=== PATIENT | female | born 1945 | race Caucasian/White ===

== ENCOUNTER 2021-08-26 11:56 | Inpatient (IN) | payer OTHER, MEDICAID, SELFPAY ==
[~2021-08-26] VITALS: Ht 165.1 cm; Wt 100.7 kg
[2021-08-26 12:00] VITALS: BP_SYST 136
--- NOTE | 2021-08-26 12:00 | NUR ---
BROUGHT IN BY ME[employer] FIRE AND PLACED IN BED #1 AND TRIAGED. REPORT GIVEN TO BRODIE
--- NOTE | 2021-08-26 12:25 | NUR ---
MD RUSSO AT BEDSIDE ASSESSING PT.
[2021-08-26 13:06] LABS: ANION GAP 10 (5-15); CALCIUM 8.5 mg/dL (8.4-11.0); CHLORIDE 101 mmol/L (98-107); CREATININE 0.98 mg/dL (0.55-1.30); GLUCOSE 115 mg/dL (70-99); POTASSIUM 3.5 mmol/L (3.5-5.1); SODIUM SERUM 139 mmol/L (136-145); UREA NITROGEN, BLOOD 20 mg/dL (8-21)
[2021-08-26 13:14] LABS: INR 1.1 (0.8-1.2)
[2021-08-26 13:16] LABS: ALANINE AMINOTRANSFERASE 261 U/L (12-78); ALBUMIN 3.3 g/dL (3.4-4.8); ASPARTATE AMINOTRANSFERASE 64 U/L (10-37); TOTAL BILIRUBIN 1.2 mg/dL (0.0-1.0)
[2021-08-26 13:27] LABS: EOSINOPHILS % (AUTO) 0.9 % (0.0-4.0); HEMATOCRIT 37.4 % (36-48); HEMOGLOBIN 12.3 g/dL (12.0-16.0); LYMPHOCYTES # (AUTO) 1.1 K/uL (1.0-5.5); LYMPHOCYTES % (AUTO) 20.5 % (20.5-51.5); MEAN CORPUSCULAR HEMOGLOBIN 28 pg (27-31); MEAN CORPUSCULAR HGB CONC 33 % (32-36); MEAN CORPUSCULAR VOLUME 86 fL (79.0-98.0); MONOCYTES # (AUTO) 0.3 K/uL (0.0-1.0); MONOCYTES % (AUTO) 6.4 % (1.7-9.3); PLATELET COUNT (AUTO) 153 K/uL (130-430); RED BLOOD CELL COUNT(AUTO) 4.34 MIL/uL (4.2-6.2); RED CELL DISTRIBUTION WIDTH 15.8 % (9.0-15.0); WHITE BLOOD COUNT (AUTO) 5.2 K/uL (4.8-10.8)
[2021-08-26 13:30] LABS: BASOPHILS % (AUTO) 0.2 % (0.0-2.0); NEUTROPHILS # (AUTO) 3.8 K/uL (1.8-7.7)
--- NOTE | 2021-08-26 13:35 | NUR ---
PT IS STABLE, NO S/S OF DISCOMFORT. TOP AND SEAT COVER FITTER NOTING STABLE WTIH TACHYCARDIA.
[2021-08-26] MEDS ORDERED: dilTIAZem HCL IVP 5 MG/ML VIAL IVP ONE (14:00)
[2021-08-26] MEDS ORDERED: DILTIAZEM HCL 60 MG TABLET PO ONE (14:00)
--- NOTE | 2021-08-26 14:30 | NUR ---
Clarified with pt that her pcp is Eliazar Garrido
[2021-08-26] MEDS ORDERED: METOPROLOL TARTRATE 5 MG/5 ML AMPUL IVP ONE ×2 (15:15→20:45)
--- NOTE | 2021-08-26 15:46 | NUR ---
HR NOW DOWN TO 99 BPM, AFTER METOPROLOL.
--- NOTE | 2021-08-26 16:04 | NUR ---
HR DOWN TO 94 BPM. METOPROLOL EFFECTIVE
--- NOTE | 2021-08-26 17:30 | NUR ---
SPOKE WITH SON, AND GAVE HIM SPELLING AND INFORMATION OF A-FIB DX.
--- NOTE | 2021-08-26 17:31 | NUR ---
PT CONTINUES DO VERY WELL, EATING TURKEY SANDWHICH AND JUICE. LAUGHING AND TALKING. HR MUCH IMPROVED.
--- NOTE | 2021-08-26 20:50 | NUR ---
Administered 2.5mg metoprolol IV push to R AC at this time. Two unsusessful attempts to chart medication admin usining EMAR.
--- NOTE | 2021-08-26 22:37 | NUR ---
D dimer lab specimen collected and walked to lab.
[2021-08-27] VITALS (7 sets, daily range): BP systolic 124–150
--- NOTE | 2021-08-27 02:00 | NUR ---
pt arrived to the unit with ER nurse for AFIB. report giving at bedside. pt is alert. awake and stable. no c/o pain or sob at this time. vitals taken b/p 150/89 hr tacky 122 asymptomatic, pt has wheezing to bilateral lung while on 02 nc 95%. skin warm to touch and clean and dry. 20g to right AC patent and intact. all personal belongings check in. pt is oriented Nigerian speaking and able to make needs known. educated pt to room and how to use call light. bed to lowest position. pt waiting for cardiology consult....
--- NOTE | 2021-08-27 04:28 | NUR ---
Consultation Paged Reason for Consultation: Atrial Fibrillation Was consult called: Y Person who was notified: Jorgito Consulting Physician: Lele Sharif (Morgan Ruiz is director organizational) Ordering Physician: Aakash Ruiz
--- NOTE | 2021-08-27 06:53 | NUR ---
patient HR continue A-FIB 120'S-130'S cardiology consult was page. awaiting call back, will endorse to day nurse to f/u care.
--- NOTE | 2021-08-27 08:00 | NUR ---
OPENING NOTES: PATIENT RESTING IN BED. BREATHING EVEN AND NON LABORED TO O2 AT 2L/NC. DENIES ANY DISCOMFORT AT THIS TIME. FALL, SAFETY AND ASPIRATION MEASURES REINFORCED. CALL LIGHT WITHIN REACH.
[2021-08-27] MEDS ORDERED: HYDROcodone/ACETAMIN 10-325 MG TAB PO PRN (08:15)
[2021-08-27] MEDS ORDERED: ONDANSETRON HCL 4 MG/2 ML VIAL IVP PRN (08:15)
[2021-08-27] MEDS ORDERED: HYDROcodone/ACETAMIN 5-325 MG TAB (NORCO/ VICODIN) PO PRN (08:15)
[2021-08-27] MEDS ORDERED: ACETAMINOPHEN 325 MG TABLET PO PRN (08:15)
[2021-08-27] MEDS ORDERED: NALOXONE HCL 0.4 MG/ML AMP (NARCAN) IVP PRN ×2 (08:15)
[2021-08-27] MEDS ORDERED: LORazepam 2 MG/ML VIAL IVP PRN (08:15)
--- NOTE | 2021-08-27 08:59 | NUR ---
[employer] BLASTING EMERGENCY MEDICINE MEDICAL DIRECTOR DR Alanis CLARK WAS CALLED, RE: SUSTAINED HIGH HEART RATE. SPOKE TO NOVEMBER.
[2021-08-27] MEDS ORDERED: ENOXAPARIN SODIUM 30 MG/0.3 ML SYRINGE SUBCUT SCH (09:00)
--- NOTE | 2021-08-27 09:44 | NUR ---
PUT ANOTHER CALL TO DR Alanis CLARK,ELECTRO MECHANICAL TECHNICIAN FOR AN INCREASING HR. SPOKE TO
--- NOTE | 2021-08-27 10:21 | NUR ---
SPOKE TO DR. Kori CLARK ( RE: HIGH HR): SPOKE TO DR. MELYSSA CLARK REGARDING HIGH HEART RATE 140'S TO 150'S DURING HIS ROUNDS. PER DR. Kori CLARK, HE WILL SEE PATIENT FIRST. HE TALKED TO THE PATIENT AT BEDSIDE.
[2021-08-27] MEDS ORDERED: APIXABAN 2.5 MG TABLET PO ONE (11:15)
[2021-08-27] MEDS ORDERED: FUROSEMIDE 20 MG/2 ML VIAL IVP ONE (11:15)
[2021-08-27] MEDS ORDERED: CARVEDILOL 12.5 MG TABLET (COREG) PO ONE (11:15)
[2021-08-27] MEDS: dilTIAZem HCL IVP 5 MG/ML VIAL IVP PRN ×3 (11:20→22:25)
[2021-08-27] MEDS ORDERED: NORMAL SALINE 5 ML DISP.SYRIN IVF SCH (14:00)
[2021-08-27] MEDS: NORMAL SALINE 5 ML DISP.SYRIN IVF SCH ×2 (14:27→22:04)
--- NOTE | 2021-08-27 16:01 | NUR ---
RN NOTES: HR 130'S. NO CHEST DISCOMFORT NOTED. PRN MED FOR ELEVATED HEART RATE GIVEN.
--- NOTE | 2021-08-27 18:51 | NUR ---
CLOSING NOTES: PATIENT RESTING IN BED. NO S/S OF ACUTE DISTRESS NOTED. NEEDS MET THROUGHOUT SHIFT. WILL CONTINUE MONITOR UNTIL ENDORSE TO BOTTOM TURNING LATHE TURNER RN.
[2021-08-27] MEDS: CARVEDILOL 12.5 MG TABLET (COREG) PO SCH (21:58)
[2021-08-27] MEDS: FUROSEMIDE 20 MG/2 ML VIAL IVP SCH (21:59)
[2021-08-27] MEDS: APIXABAN 2.5 MG TABLET PO SCH (22:01)
--- NOTE | 2021-08-27 23:22 | NUR ---
Assumed care. Pt was sleeping at the time. She had not eaten her dinner yet. Upon introduction of self, I did wake her up to eat her dinner. She did eat 100% of her dinner. HR is above 100%. At 2225 Diltiazem 20 mg was administered 2/2 HR = 127, BP = 146/64. At 2255 HR = 86 upon reassessment. Currently pt is sleep.Bed in low position. Call light within reach. Bed alarm on. She has been advise to call for help before getting up.
[2021-08-28] VITALS: BP_SYST 131
[2021-08-28 04:00] VITALS: BP_SYST 129
[2021-08-28] MEDS: NORMAL SALINE 5 ML DISP.SYRIN IVF SCH ×3 (06:16→22:00)
[2021-08-28 06:42] LABS: BASOPHILS % (AUTO) 0.6 % (0.0-2.0); EOSINOPHILS # (AUTO) 0.1 K/uL (0.0-0.4); EOSINOPHILS % (AUTO) 1.2 % (0.0-4.0); HEMATOCRIT 36.4 % (36-48); HEMOGLOBIN 12.1 g/dL (12.0-16.0); LYMPHOCYTES # (AUTO) 1.4 K/uL (1.0-5.5); LYMPHOCYTES % (AUTO) 24.1 % (20.5-51.5); MEAN CORPUSCULAR HEMOGLOBIN 29 pg (27-31); MEAN CORPUSCULAR HGB CONC 33 % (32-36); MEAN CORPUSCULAR VOLUME 87 fL (79.0-98.0); MONOCYTES # (AUTO) 0.4 K/uL (0.0-1.0); MONOCYTES % (AUTO) 6.2 % (1.7-9.3); NEUTROPHILS % (AUTO) 67.9 % (40.0-70.0); PLATELET COUNT (AUTO) 143 K/uL (130-430); RED BLOOD CELL COUNT(AUTO) 4.21 MIL/uL (4.2-6.2); WHITE BLOOD COUNT (AUTO) 5.8 K/uL (4.8-10.8)
[2021-08-28 07:09] LABS: ALANINE AMINOTRANSFERASE 166 U/L (12-78); ALBUMIN 3.1 g/dL (3.4-4.8); ANION GAP 8 (5-15); ASPARTATE AMINOTRANSFERASE 30 U/L (10-37); CALCIUM 8.1 mg/dL (8.4-11.0); CHLORIDE 100 mmol/L (98-107); CREATININE 1.02 mg/dL (0.55-1.30); GLUCOSE 110 mg/dL (70-99); PHOSPHORUS 5.5 mg/dL (2.7-4.5); POTASSIUM 3.5 mmol/L (3.5-5.1); SODIUM SERUM 139 mmol/L (136-145); TOTAL BILIRUBIN 0.9 mg/dL (0.0-1.0); UREA NITROGEN, BLOOD 24 mg/dL (8-21)
[2021-08-28 08:20] VITALS: BP_SYST 155
[2021-08-28] MEDS: dilTIAZem HCL IVP 5 MG/ML VIAL IVP PRN ×2 (08:33→16:14)
[2021-08-28] MEDS: FUROSEMIDE 20 MG/2 ML VIAL IVP SCH ×2 (08:33→21:00)
[2021-08-28] MEDS: CARVEDILOL 12.5 MG TABLET (COREG) PO SCH ×2 (08:34→21:00)
[2021-08-28] MEDS: APIXABAN 2.5 MG TABLET PO SCH ×2 (08:42→21:00)
[2021-08-28] MEDS ORDERED: METOPROLOL TARTRATE 5 MG/5 ML AMPUL IVP ONE (11:15)
[2021-08-28 12:00] VITALS: BP_SYST 129
[2021-08-28 16:00] VITALS: BP_SYST 129
[2021-08-29] VITALS: BP_SYST 118
[2021-08-29 04:00] VITALS: BP_SYST 141
[2021-08-29] MEDS: dilTIAZem HCL IVP 5 MG/ML VIAL IVP PRN (04:00)
[2021-08-29] MEDS: NORMAL SALINE 5 ML DISP.SYRIN IVF SCH (06:21)
[2021-08-29 06:53] LABS: BASOPHILS % (AUTO) 0.6 % (0.0-2.0); EOSINOPHILS # (AUTO) 0.1 K/uL (0.0-0.4); EOSINOPHILS % (AUTO) 2.4 % (0.0-4.0); HEMATOCRIT 38.8 % (36-48); HEMOGLOBIN 12.6 g/dL (12.0-16.0); LYMPHOCYTES % (AUTO) 20.3 % (20.5-51.5); MEAN CORPUSCULAR HEMOGLOBIN 28 pg (27-31); MEAN CORPUSCULAR HGB CONC 33 % (32-36); MEAN CORPUSCULAR VOLUME 87 fL (79.0-98.0); MONOCYTES # (AUTO) 0.4 K/uL (0.0-1.0); MONOCYTES % (AUTO) 7.3 % (1.7-9.3); NEUTROPHILS # (AUTO) 3.5 K/uL (1.8-7.7); NEUTROPHILS % (AUTO) 69.4 % (40.0-70.0); PLATELET COUNT (AUTO) 147 K/uL (130-430); RED BLOOD CELL COUNT(AUTO) 4.45 MIL/uL (4.2-6.2); RED CELL DISTRIBUTION WIDTH 15.9 % (9.0-15.0); WHITE BLOOD COUNT (AUTO) 5.1 K/uL (4.8-10.8)
[2021-08-29 07:08] LABS: ANION GAP 8 (5-15); CALCIUM 8.2 mg/dL (8.4-11.0); CHLORIDE 102 mmol/L (98-107); CREATININE 0.96 mg/dL (0.55-1.30); GLUCOSE 116 mg/dL (70-99); POTASSIUM 3.6 mmol/L (3.5-5.1); SODIUM SERUM 143 mmol/L (136-145); UREA NITROGEN, BLOOD 26 mg/dL (8-21)
[2021-08-29 07:58] VITALS: BP_SYST 143
[2021-08-29] MEDS: CARVEDILOL 12.5 MG TABLET (COREG) PO SCH (09:12)
[2021-08-29] MEDS: APIXABAN 2.5 MG TABLET PO SCH (09:13)
[2021-08-29] MEDS ORDERED: POTASSIUM CHLORIDE 20 MEQ TAB.PRT.SR PO ONE (09:15)
[2021-08-29] MEDS ORDERED: APIX2.5T PO (10:22)
[2021-08-29] MEDS ORDERED: FURO-150 PO (10:22)
[2021-08-29] MEDS ORDERED: COR12.5 PO (10:22)
[2021-08-29 11:31] VITALS: BP_SYST 114
--- NOTE | 2021-08-29 12:40 | NUR ---
ALL NEEDS METS, VITAL SIGN STABLE, AFEBRILE, NO S/S OF DISTRESS, ALL DISCHARGE INSTRUCTION EXPLAINED AND COPIES GIVEN. PRESCRIBED MEDICATION SENT TO PREFERRED PHARMACY. IV ACCESS REMOVED AND DRESSING APPLIED, NO ACTIVE BLEEDING NOTED. BELONGINGS CHECK AND PT AGREED. ALL QUESTION, ANSWERED. WHEEL OUT VIA WHEELCHAIR [employer]QUIPMENT REPAIRER BY SON ( TARA).
[2021-08-30] MEDS ORDERED: FUROSEMIDE 20 MG TABLET PO SCH (09:00)
== END 2021-08-29 12:40 | disposition home or self-care (01) | DRG 189 ==
LOC: SED 11:56 → STU 15:54
PROVIDERS: ADMIT Preventive Medicine Preventive Medicine/Occupational Environmental Medicine; ATTEND Preventive Medicine Preventive Medicine/Occupational Environmental Medicine
DX: J96.01 Acute respiratory failure with hypoxia (principal); E44.0 Moderate protein-calorie malnutrition; I50.22 Chronic systolic (congestive) heart failure; I48.91 Unspecified atrial fibrillation; I10 Essential (primary) hypertension; R73.9 Hyperglycemia, unspecified; E83.39 Other disorders of phosphorus metabolism; E83.52 Hypercalcemia; I11.0 Hypertensive heart disease with heart failure; Z20.822 Contact with and (suspected) exposure to COVID-19; E78.5 Hyperlipidemia, unspecified; R74.01 Elevation of levels of liver transaminase levels; E88.09 Other disorders of plasma-protein metabolism, not elsewhere classified; Z79.01 Long term (current) use of anticoagulants; Z68.36 Body mass index [BMI] 36.0-36.9, adult
CPT/HCPCS: 36415; 71045; 76700-TC; 80048; 80053; 82962; 83735; 83880; 84100; 84484; 85025; 85379; 85610-TC; 85730-TC; 93005; 93306; 96374; 96375; 97116-GP; 97163-GP; 97530-GP; 99285; G0378; J1650; J1940; J2060; J3490